=== PATIENT | female | born 1960 | race Caucasian/White ===

== ENCOUNTER 2020-06-25 10:27 | Emergency (ER) | payer OTHER, SELFPAY ==
[2020-06-25 11:23] VITALS: BP 195/112; PULSE 92; RESP 18; TEMP 36.2; O2SAT 97; BMI 33.6
[2020-06-25 12:22] LABS: Glucose Urine UA NEG (NEG); Leukocyte Esterase Urine 3+ (NEG); Nitrite Urine NEG (NEG); Specific Gravity - Urine 1.025 (1.005-1.025); UACC Culture Trigger YES; Urine Blood 3+ (NEG); Urine Ketones NEG (NEG); Urine Protein TRACE MG/DL (NEG-TRACE)
[2020-06-25 12:27] LABS: Appearance Urine HAZY; Color Urine YELLOW
[2020-06-25 12:59] LABS: Bacteria Urine TRACE /LPF; RBC Urine 30-49 /HPF (0); Squamous Epithelial Cell Urine 2+ /LPF; WBC Urine 30-49 /HPF (0-4)
--- NOTE | 2020-06-25 13:46 | ED.GENADULT ---
HPI - General Adult General Chief complaint: General Medical Stated complaint: HBP Time Seen by Provider: 06/25/20 13:46 Related Data Allergies Allergy/AdvReac Type Severity Reaction Status Date / Time No Known Allergies Allergy Verified 06/25/20 11:31 [facility] Past Medical History Medical History (Updated 06/25/20 @ 11:29 by Pramod Cohen) Diabetes HLD (hyperlipidemia) HTN (hypertension) Surgical History (Updated 06/25/20 @ 11:30 by Pramod Cohen) History of appendectomy Hx of cholecystectomy Physical Exam Vital Signs: Vital Signs: Last Vital Signs Temp 97.2 F 06/25/20 11:23 Pulse 92 06/25/20 11:23 Resp 18 06/25/20 11:23 BP 195/112 H 06/25/20 11:23 Pulse Ox 97 06/25/20 11:23 Body Mass Index 33.6 Course Course Course Narrative: 1344-This is a rapod medical exam. 59 yo female here with HTN, went to get COVID vaccine and noted to have high blood pressure. C/o GARCIA. No chest pain. Hypertensive in triage. Will check EKG, labs, UA. Deferred HPI, ROS, HPI to primary provider. Medical Decision Making Lab Data Labs: Lab Results 06/25/20 Range/Units Unknown Urine Color YELLOW Urine Appearance HAZY Urine pH 6.0 (5.0-8.0) Ur Specific [place] 1.025 (1.005-1.025) Urine Protein TRACE (NEG-TRACE) MG/DL Urine Glucose (UA) NEG (NEG) MG/DL Urine Ketones NEG (NEG) MG/DL Urine Blood 3+ H (NEG) Urine Nitrite NEG (NEG) Ur Leukocyte Esterase 3+ H (NEG) Urine RBC 30-49 H (0) /HPF Urine WBC 30-49 H (0-4) /HPF Ur Squamous Epith Cells 2+ /LPF Urine Bacteria TRACE /LPF
== END 2020-06-25 19:11 | disposition left against medical advice (07) ==
PROVIDERS: Emergency Provider Internal Medicine; PCP Physician Assistant Medical
DX: I10 Essential (primary) hypertension (principal); Z79.899 Other long term (current) drug therapy
CPT/HCPCS: 81001; 81003; 87086; 99283

== ENCOUNTER 2021-07-02 16:26 | Emergency (ER) | payer OTHER, SELFPAY ==
--- NOTE | ~2021-07-02 | US_ITS ---
EXAMINATION: US EXTRACRANIAL CAROTID DUPLEX, BILATERAL CLINICAL INFORMATION: Question CVA COMPARISON: None TECHNIQUE: Real-time ultrasound and Doppler techniques (integrating B-mode 2-D vascular images, Doppler spectral analysis and color-flow Doppler imaging) were utilized to interrogate the extracranial carotid arteries, the vertebral arteries and proximal subclavian arteries bilaterally. The degree of stenosis is determined by criteria similar to NASCET. FINDINGS: Right Side: 1. There is no visualized atherosclerotic plaque seen in the bifurcation/proximal ICA region. 2. The common carotid artery PSV proximally is 84.1 cm/s and distally 75.2 cm/s. 3. The proximal internal carotid artery velocities are 87.8 cm/s systolic and 24.7 cm/s diastolic. 4. The proximal external carotid artery PSV is 88.9 cm/s. 5. The vertebral artery shows antegrade flow. 6. The subclavian artery waveforms are normal. Left Side: 1. There is no visualized atherosclerotic plaque seen in the bifurcation/proximal ICA region. 2. The common carotid artery PSV proximally is 86.2 cm/s and distally 71.4 cm/s. 3. The proximal internal carotid artery velocities are 55.4 cm/s systolic and 19.2 cm/s diastolic. 4. The proximal external carotid artery PSV is 69.6 cm/s. 5. The vertebral artery shows antegrade flow. 6. The subclavian artery waveforms are 84.3. US/US carotid duplex BI IMPRESSION: 1. RIGHT: Normal right internal carotid artery without atherosclerotic plaque or hemodynamically significant stenosis. 2. LEFT: Normal left internal carotid artery without atherosclerotic plaque or hemodynamically significant stenosis.
--- NOTE | ~2021-07-02 | MR_ITS ---
EXAMINATION: MR BRAIN WITHOUT CONTRAST CLINICAL INFORMATION: Left-sided facial numbness. Cerebrovascular accident. COMPARISON: CT head from 07/02/2021. TECHNIQUE: MRI of the brain was obtained using routine sequences without contrast. FINDINGS: No focal restricted diffusion is demonstrated to suggest acute or subacute cerebral ischemia. No evidence of acute or chronic hemorrhagic products on heme-sensitive imaging. Scattered nonspecific periventricular and deep white matter T2 FLAIR hyperintensities most commonly seen with mild underlying microangiopathy. The ventricles are normal in morphology and size. No abnormal mass effect. No midline shift. The sella turcica is mildly expanded with flattening of the pituitary gland. Normal positioning of the cerebellar tonsils. Normal arterial and venous vascular flow voids are present. Normal, homogeneous marrow signal. Mild mucosal thickening of the paranasal sinuses. No signal abnormalities within the mastoids. MR/MR head/brain wo con IMPRESSION: 1. No acute intracranial abnormalities. 2. Mild chronic white matter changes most commonly seen with underlying microangiopathy.
--- NOTE | ~2021-07-02 | CT_ITS ---
EXAMINATION: CT HEAD WITHOUT CONTRAST CLINICAL INFORMATION: Left-sided facial numbness COMPARISON: None. TECHNIQUE: Contiguous axial imaging was performed from the skull base to vertex without intravenous administration of contrast. Coronal and sagittal reformatted images are performed at the CT scanner. [This CT examination was performed using dose optimization techniques as appropriate, variously including the following: *Automated exposure control *Adjustment of mA and/or kV according to patient size (this includes techniques or standardized protocols for targeted exams where dose is matched to indication/reason for exam; i.e. extremities or head) *Use of iterative reconstruction technique] DLP: 700 mGy-cm. FINDINGS: There is no evidence of acute intracranial hemorrhage or territorial infarction. No abnormal mass-effect or midline shift is seen. [place] to white matter differentiation is well preserved. No extra-axial fluid collections are identified. The ventricles are normal in size. There is no abnormal attenuation within the brain parenchyma. There is no osseous abnormality. The mastoid air cells and visualized portions of the paranasal sinuses are well-aerated. CT/CT head/brain wo con IMPRESSION: No acute intracranial pathology.
[2021-07-02 16:34] VITALS: BP 121/88; PULSE 100; RESP 19; TEMP 36.6; O2SAT 99; BMI 35.3
--- NOTE | 2021-07-02 16:48 | ED.GENADULT ---
HPI - General Adult General Chief complaint: General Medical Stated complaint: hands/lips swollen/numbness left side of face Time Seen by Provider: 07/02/21 16:47 Source: patient Mode of arrival: ambulatory Limitations: no limitations History of Present Illness HPI narrative: 60-year-old male past medical history hypertension, hyperlipidemia, diabetes presenting to the emergency department with complaints of loss of sensation to the left side of her face. Patient tells me that she has been having decreased sensation since around 06:00 this morning when she woke up before work. She tells me that from time to time she feels like it is slightly itchy. However her main concern is the loss of sensation. She tells me if she touches her face she knows that she is touching herself however it feels different when compared to the right side of the face. She tells me this is never happened to her before. She also reports that she recently started taking glipizide about a week ago she was worried that maybe this was an adverse effect. Patient also reports blurred vision bilaterally which is new in nature. She denies weakness, changes in speech, headache, dizziness, nausea, vomiting, chest pain, shortness of breath, swallowing difficulties. Related Data Home Medications Medication Instructions Recorded Confirmed aspirin 81 mg tablet,delayed 1 tab PO DAILY 07/02/21 07/02/21 release celecoxib 200 mg capsule 1 cap PO BID PRN 07/02/21 07/02/21 cholecalciferol (vitamin D3) 50 1 cap PO DAILY 07/02/21 07/02/21 mcg (2,000 unit) capsule (Vitamin D3) gabapentin 800 mg tablet 1 tab PO TID 07/02/21 07/02/21 glipizide 5 mg tablet, extended 1 tab PO QAM 07/02/21 07/02/21 release 24 hr losartan 50 mg-hydrochlorothiazide 1 tab PO QAM 07/02/21 07/02/21 12.5 mg tablet simvastatin 20 mg tablet 1 tab PO BEDTIME 07/02/21 07/02/21 sitagliptin 50 mg-metformin 1,000 1 tab PO BID 07/02/21 07/02/21 mg tablet (Janumet) Previous Rx's Medication Instructions Recorded cefuroxime axetil 250 mg tablet 250 mg PO BID 7 Days #14 tab 07/02/21 Allergies Allergy/AdvReac Type Severity Reaction Status Date / Time No Known Allergies Allergy Verified 06/25/20 11:31 Review of Systems Review of Systems: Constitutional : No Weight loss, No Fever, No Chills, No Fatigue, No Malaise ENT/Mouth : No sore throat, No Rhinorrhea Eyes: No Eye Pain, No Swelling, No Redness Cardiovascular : No Chest Pain, No SOB, No Dyspnea on Exertion, No Orthopnea, No Edema, No Palpitations Respiratory : No Cough, No Sputum, No Wheezing Gastrointestinal : No Nausea, No Vomiting, No Diarrhea, No Constipation, No abdominal Pain, No Hematochezia, No Melena Genitourinary : No Dysuria, No Urinary Frequency, No Hematuria, Musculoskeletal : No joint pain, No Myalgias, No Joint Swelling Skin : No Skin Lesions, No rash Neuro : No Weakness, No Numbness, No Dizziness, No Headache Psych : No Anxiety/Panic, No Depression All other systems reviewed and are negative Yes all other systems are reviewed and are negative [facility] Past Medical History Attestation statement: The following information was validated with the patient. Source: old records reviewed and nursing notes reviewed Medical History (Updated 07/02/21 @ 21:01 by FELISA Oropeza) Diabetes HLD (hyperlipidemia) HTN (hypertension) Surgical History History of appendectomy Hx of cholecystectomy Social History Social History Advance Directives: No Advance Directives Information Provided: No Physical Exam ED Vital Signs: Vital Signs - 24 hr 07/02/21 16:34 07/02/21 17:39 07/02/21 18:00 Temperature 98 F Pulse Rate 100 92 85 Respiratory Rate 19 16 17 Blood Pressure 121/88 125/77 Pulse Oximetry 99 96 96 07/02/21 21:35 Temperature Pulse Rate 90 Respiratory Rate 18 Blood Pressure Pulse Oximetry 96 BMI result Body Mass Index 35.3 Vital signs stable Appearance: Alert.? Oriented X3.? No acute distress.? Head: Normocephalic, atraumatic, no step-offs or deformities Eyes: Pupils equal, round and reactive to light.? ENT: Pharynx normal.? Neck: Normal inspection.? Neck supple.? CVS: Normal heart rate and rhythm.? Pulses normal.? Respiratory: No respiratory distress.? Breath sounds normal.? Abdomen: Soft and nontender.? Skin: Skin warm and dry.? Normal skin color.? Normal skin turgor.? Extremities: No lower extremity edema.? No calf ttp. 5/5 strength to bilateral upper and lower extremities Back: No midline tenderness, no C-spine tenderness, full range of motion, no CVA tenderness bilaterally Neuro: Oriented X 3.? No motor deficit. CN 2-12 intact Normal finger to nose. + weakness and numbness of the left side of face + decreased sensation on the left side of face. Course Reevaluation(s) Reevaluation #1: B/L eye pressures 18 w/ rita pen. Unlikely acute angle closure glaucoma. Or wet macular degeneration Time: 17:15 Reevaluation #2: CBC with a slight leukocytosis patient currently has a UTI according to PCP, slight OSMEL is noted. No other electrolyte abnormalities requiring intervention. Patient will get hydrated. Call out to Neurology. Time: 17:20 Reevaluation #3: Spoke to Neurology who tells me if stroke was suspected patient should be admitted. At this time will speak to hospitalist team Spoke to hospitalist. Time: 17:48 Additional Reevaluation(s): 2054 Carotid Doppler Study WNL. MRI of head/brain w/o acute intracranial abnormalities. Mild chronic white matter changes noted. Discussed both these findings w/ recommends discharge home with neurology follow up. Patient noted to have a UTI she will be treated with Ceftin 250 mg p.o. b.i.d. x7 days. Advised her to follow-up with her PCP. Return with new or worsening symptoms 2200 BUN Cr improved after 1 L of fluids. Second L running. Patient will follow-up with her PCP for repeat BUN and creatinine. At time of discharge she tells me that her tingling has improved significantly. Comfortable w/ dc home with PCP and neurology follow up. Medical Decision Making [facility] Narrative Medical decision making narrative: 1652 60 yo f presents w/ numbness to the left side of the face since this morning. Patient recently started glipizide PE significant for decreased sensation to the left side of the face, does not cross the midline, no overlying skin changes, no abnormalities within bilateral ear canals. Patient's neuro exam is nonfocal other than decreased sensation to the left side of the face. Patient has normal sensation to the left side of the body other than her face. Plan labs, imaging, urine . Concern for thalamic stroke, unlikely trigeminal neuralgia, Aspen Avial syndrome or Alvarado's palsy, Medical Records Medical records reviewed: Yes I reviewed the patient's medical records. Lab Data Lab results reviewed: Yes I reviewed the patient's lab results. Result diagrams: 07/02/21 16:58 07/02/21 21:18 Labs: Lab Results 07/02/21 07/02/21 07/02/21 Range/Units 16:58 16:58 16:58 WBC 13.6 H (4.8-10.8) X10*3/uL RBC 4.82 (4.20-5.50) X10*6/uL Hgb 13.8 (12.0-16.0) g/dl Hct 41.9 (37.0-47.0) % MCV 86.9 (80.0-98.0) fL MCH 28.6 (27.0-33.0) pg MCHC 32.9 (31.0-35.0) g/dl RDW 14.1 (11.0-16.0) % Plt Count 439 H (160-400) X10*3/uL MPV 9.8 (9.4-12.3) fL Immature Gran % (Auto) 0.4 (0.0-0.4) % Neut % (Auto) 67.6 (45-73) % Lymph % (Auto) 23.7 (20-40) % [place] % (Auto) 6.3 (2-11) % Eos % (Auto) 1.5 (0-4) % Baso % (Auto) 0.5 (0-2) % Lymph # (Auto) 3.2 (1.2-4.9) X10*3/uL [place] # (Auto) 0.9 (0.1-1.2) X10*3/uL Eos # (Auto) 0.2 (0.0-0.4) X10*3/uL Baso # (Auto) 0.1 (0.0-0.2) X10*3/uL Abs Immat Gran (auto) 0.05 H (0.00-0.03) X10*3/uL Absolute Neuts (auto) 9.2 H (2.0-8.3) x10*3/uL Absolute Nucleated RBC 0.000 (0.0-0.012) X10*3/uL Nucleated RBC % (auto) 0.0 (0.0-0.2) /100WBC PT (9.9-13.0) SEC INR (0.9-1.1) Sodium 137 (135-145) mmol/L Potassium 4.2 (3.3-5.1) mmol/L Chloride 102 (96-108) mmol/L Carbon Dioxide 21 L (22-29) mmol/L Anion Gap 18 (12-20) BUN 29 H (9-16) mg/dL Creatinine 1.87 H (0.5-1.4) mg/dL Estim Creat Clear Calc 33.7 Estimated GFR 28 Random Glucose 130 H (60-115) mg/dL Calcium 9.9 (8.4-10.2) mg/dL Magnesium 1.5 L (1.6-2.6) mg/dL Total Bilirubin 0.5 (0.0-1.0) mg/dL AST 38 H (5-31) U/L ALT 36 H (0-31) U/L Alkaline Phosphatase 107 (39-117) U/L Total Protein 7.9 (6.5-8.0) g/dL Albumin 4.5 (3.5-5.0) g/dL Urine Color Urine Appearance Urine pH (5.0-8.0) Ur Specific [place] (1.005-1.025) Urine Protein (NEG-TRACE) MG/DL Urine Glucose (UA) (NEG) MG/DL Urine Ketones (NEG) MG/DL Urine Blood (NEG) Urine Nitrite (NEG) Ur Leukocyte Esterase (NEG) Urine RBC (0) /HPF Urine WBC (0-4) /HPF Ur Squamous Epith Cells /LPF Urine Bacteria /LPF COVID-19 ([facility]) Negative (Negative) COVID-19 Clin Com See Note 07/02/21 07/02/21 07/02/21 Range/Units 17:48 19:53 21:18 WBC (4.8-10.8) X10*3/uL RBC (4.20-5.50) X10*6/uL Hgb (12.0-16.0) g/dl Hct (37.0-47.0) % MCV (80.0-98.0) fL MCH (27.0-33.0) pg MCHC (31.0-35.0) g/dl RDW (11.0-16.0) % Plt Count (160-400) X10*3/uL MPV (9.4-12.3) fL Immature Gran % (Auto) (0.0-0.4) % Neut % (Auto) (45-73) % Lymph % (Auto) (20-40) % [place] % (Auto) (2-11) % Eos % (Auto) (0-4) % Baso % (Auto) (0-2) % Lymph # (Auto) (1.2-4.9) X10*3/uL [place] # (Auto) (0.1-1.2) X10*3/uL Eos # (Auto) (0.0-0.4) X10*3/uL Baso # (Auto) (0.0-0.2) X10*3/uL Abs Immat Gran (auto) (0.00-0.03) X10*3/uL Absolute Neuts (auto) (2.0-8.3) x10*3/uL Absolute Nucleated RBC (0.0-0.012) X10*3/uL Nucleated RBC % (auto) (0.0-0.2) /100WBC PT 12.7 (9.9-13.0) SEC INR 1.1 (0.9-1.1) Sodium 139 (135-145) mmol/L Potassium 4.0 (3.3-5.1) mmol/L Chloride 108 (96-108) mmol/L Carbon Dioxide 21 L (22-29) mmol/L Anion Gap 14 (12-20) BUN 25 H (9-16) mg/dL Creatinine 1.44 H (0.5-1.4) mg/dL Estim Creat Clear Calc 43.7 Estimated GFR 37 Random Glucose 104 (60-115) mg/dL Calcium 8.9 D (8.4-10.2) mg/dL Magnesium (1.6-2.6) mg/dL Total Bilirubin (0.0-1.0) mg/dL AST (5-31) U/L ALT (0-31) U/L Alkaline Phosphatase (39-117) U/L Total Protein (6.5-8.0) g/dL Albumin (3.5-5.0) g/dL Urine Color STRAW Urine Appearance HAZY Urine pH 5.5 (5.0-8.0) Ur Specific [place] 1.010 (1.005-1.025) Urine Protein TRACE (NEG-TRACE) MG/DL Urine Glucose (UA) NEG (NEG) MG/DL Urine Ketones NEG (NEG) MG/DL Urine Blood 3+ H (NEG) Urine Nitrite NEG (NEG) Ur Leukocyte Esterase 3+ H (NEG) Urine RBC 15-29 H (0) /HPF Urine WBC TNTC H (0-4) /HPF Ur Squamous Epith Cells 1+ /LPF Urine Bacteria 1+ /LPF COVID-19 ([facility]) (Negative) COVID-19 Clin Com Critical Care Time Critical Care Time Critical Care Time: No Discharge Plan Discharge Clinical Impression: Facial numbness, UTI (urinary tract infection) Patient Disposition: Home, Self-Care Additional Instructions: Take your medications as prescribed. If you were prescribed antibiotics today, it is important that you take your medication to their entirety, do not skip any doses, do not finish them early. Follow-up with your primary care provider this week. Follow-up with neurology this week a Return to the emergency department with new or worsening symptoms. Such as fevers, chills, chest pain, shortness of breath, nausea, vomiting, dizziness, headache, vision changes, lethargy In case of emergency call 911 Please stop taking your antibiotics that you were taking and start taking once that I sent to your pharmacy. I sent them to [address] [facility]. Your BUN and creatinine which are indicators of kidney function were slightly elevated please have these labs repeated by her primary care provider. Prescriptions: New cefuroxime axetil 250 mg tablet 250 mg PO BID 7 Days Qty: 14 0RF No Action celecoxib 200 mg capsule 1 cap PO BID PRN (Reason: pain) 0RF glipizide 5 mg tablet extended release 24 hr 1 tab PO QAM 0RF aspirin 81 mg tablet,delayed release (DR/EC) 1 tab PO DAILY 0RF gabapentin 800 mg tablet 1 tab PO TID 0RF simvastatin 20 mg tablet 1 tab PO BEDTIME 0RF losartan-hydrochlorothiazide 50-12.5 mg tablet 1 tab PO QAM 0RF Janumet 50-1,000 mg tablet 1 tab PO BID 0RF cholecalciferol (vitamin D3) [Vitamin D3] 50 mcg (2,000 unit) capsule 1 cap PO DAILY 0RF Referrals: Maria Luisa Scott PA [Primary Care Provider] - 3 days Dean Monique MD [Physician] - 3 days Stand Alone Forms: Work/School Release
[2021-07-02 17:08] LABS: MANUAL DIFF FLAG NO
[2021-07-02 17:10] LABS: Basophils Absolute Auto 0.1 X10*3/uL (0.0-0.2); Basophils Percent Auto 0.5 % (0-2); Eosinophils Absolute Auto 0.2 X10*3/uL (0.0-0.4); Eosinophils Percent Auto 1.5 % (0-4); Hematocrit 41.9 % (37.0-47.0); Hemoglobin 13.8 g/dl (12.0-16.0); Imm Gran Abs Auto 0.05 X10*3/uL (0.00-0.03); Imm Gran Pct Auto 0.4 % (0.0-0.4); Lymphocytes Absolute Auto 3.2 X10*3/uL (1.2-4.9); Lymphocytes Percent Auto 23.7 % (20-40); Mean Corpuscular HGB Conc 32.9 g/dl (31.0-35.0); Mean Corpuscular Hemoglobin 28.6 pg (27.0-33.0); Mean Corpuscular Volume 86.9 fL (80.0-98.0); Mean Platelet Volume 9.8 fL (9.4-12.3); Monocytes Absolute Auto 0.9 X10*3/uL (0.1-1.2); Monocytes Percent Auto 6.3 % (2-11); Neutrophils Absolute Auto 9.2 x10*3/uL (2.0-8.3); Neutrophils Percent Auto 67.6 % (45-73); Platelet Count 439 X10*3/uL (160-400); Red Blood Count 4.82 X10*6/uL (4.20-5.50); Red Cell Distribution Width 14.1 % (11.0-16.0); White Blood Count 13.6 X10*3/uL (4.8-10.8)
[2021-07-02 17:26] LABS: COVID-19 Test Negative (Negative)
[2021-07-02 17:35] LABS: Alanine Aminotransferase 36 U/L (0-31); Albumin Level 4.5 g/dL (3.5-5.0); Alkaline Phosphatase 107 U/L (39-117); Anion Gap 18 (12-20); Aspartate Amino Transferase 38 U/L (5-31); Bilirubin Total 0.5 mg/dL (0.0-1.0); Blood Urea Nitrogen 29 mg/dL (9-16); Calcium 9.9 mg/dL (8.4-10.2); Carbon Dioxide 21 mmol/L (22-29); Chloride 102 mmol/L (96-108); Creatinine Clr Calc Pharmacy 33.7; Estimated Glomerular Filt Rate 28; Glucose Random 130 mg/dL (60-115); Magnesium 1.5 mg/dL (1.6-2.6); Potassium 4.2 mmol/L (3.3-5.1); Sodium 137 mmol/L (135-145); Total Protein 7.9 g/dL (6.5-8.0)
[2021-07-02 17:39] VITALS: BP 125/77; PULSE 92; RESP 16; O2SAT 96
[2021-07-02] MEDS: 0.9 % Sodium Chloride 1,000 ML 999 ML IV ×2 (17:44→21:17)
[2021-07-02 18:00] VITALS: PULSE 85; RESP 17; O2SAT 96
[2021-07-02 18:11] LABS: INTERNATIONAL NORM RATIO 1.1 (0.9-1.1); Prothrombin Time 12.7 SEC (9.9-13.0)
[2021-07-02 20:00] LABS: Appearance Urine HAZY; Color Urine STRAW; Glucose Urine UA NEG (NEG); Leukocyte Esterase Urine 3+ (NEG); Nitrite Urine NEG (NEG); PH 5.5 (5.0-8.0); UACC Culture Trigger YES; Urine Blood 3+ (NEG); Urine Ketones NEG (NEG); Urine Protein TRACE MG/DL (NEG-TRACE)
[2021-07-02 20:10] LABS: WBC Urine TNTC /HPF (0-4)
[2021-07-02 20:11] LABS: Bacteria Urine 1+ /LPF; Squamous Epithelial Cell Urine 1+ /LPF
[2021-07-02 21:35] VITALS: PULSE 90; RESP 18; O2SAT 96
--- NOTE | 2021-07-02 21:38 | PC.NURSE ---
medications verified with [facility] pharmacy staff
[2021-07-02 21:52] LABS: Anion Gap 14 (12-20); Blood Urea Nitrogen 25 mg/dL (9-16); Calcium 8.9 mg/dL (8.4-10.2); Carbon Dioxide 21 mmol/L (22-29); Chloride 108 mmol/L (96-108); Creatinine Clr Calc Pharmacy 43.7; Estimated Glomerular Filt Rate 37; Glucose Random 104 mg/dL (60-115); Sodium 139 mmol/L (135-145)
[2021-07-02 22:47] VITALS: PULSE 82; RESP 16; O2SAT 97
[2021-07-02] MEDS: diphenhydrAMINE HCL 25 MG TABLET 50 MG PO (22:55)
--- NOTE | 2021-07-02 23:00 | PC.NURSE ---
pt c/o of itchiness behind ear/ back of head. raised hives noted, PA made aware,
--- NOTE | 2021-07-02 23:28 | PC.NURSE ---
pt was given benadryl, upon reassessment, hives more widespread over back and chin. PA aware pt denies any dysphagia or SOB. denies any new soaps, detergents.
--- NOTE | 2021-07-02 23:50 | PC.NURSE ---
pt ready for dc, no sob, dysphagia or wheezing noted
== END 2021-07-02 23:50 | disposition home or self-care (01) ==
PROVIDERS: Physician Assistant; Emergency Provider Emergency Medicine Emergency Medical Services; PCP Physician Assistant Medical
DX: K13.0 Diseases of lips (principal); L29.9 Pruritus, unspecified; N39.0 Urinary tract infection, site not specified; R20.0 Anesthesia of skin; R51.9 Headache, unspecified; Z79.899 Other long term (current) drug therapy; Z20.822 Contact with and (suspected) exposure to COVID-19; Z79.82 Long term (current) use of aspirin
CPT/HCPCS: 36415; 70450; 70551; 80048; 80053; 81001; 81003; 83735; 85025; 85610; 87086; 87147; 87635; 93880; 96360; 96361; 99284; 99285; Q0163

== ENCOUNTER 2022-01-05 20:25 | Emergency (ER) | payer OTHER, SELFPAY | END 2022-01-05 23:48 | disposition left against medical advice (07) | PROVIDERS: Emergency Provider Emergency Medicine | DX: S60.579A Other superficial bite of hand of unspecified hand, initial encounter (principal) ==